=== PATIENT | female | born 1960 | race Hispanic/Latino ===

== ENCOUNTER 2024-10-07 17:01 | Emergency (ER) | payer OTHER ==
[~2024-10-07] VITALS: Ht 162.6 cm; Wt 88.5 kg
[2024-10-07 17:04] VITALS: PULSE 18; RESP 20; TEMP 99.3
[2024-10-07] MEDS ORDERED: BENZONATATE100 MG PO (17:45)
[2024-10-07 18:17] VITALS: BP 159/84; PULSE 67; RESP 18; TEMP 98.4; O2SAT 98
== END 2024-10-07 18:19 | disposition home or self-care (01) ==
LOC: FSED 17:26
DX: R05.9 Cough, unspecified (principal); J06.9 Acute upper respiratory infection, unspecified; R53.1 Weakness
CPT/HCPCS: 99283